=== PATIENT | female | born 1960 | race Caucasian/White ===

== ENCOUNTER 2021-11-20 08:09 | Emergency (ER) | payer OTHER ==
[~2021-11-20] VITALS: Ht 165.1 cm; Wt 79.4 kg
[2021-11-20 08:46] LABS: BASOPHILS 0.4 % (0.0-2.0); EOSINOPHILS 1.4 % (0.0-3.0); HEMATOCRIT 47.9 % (37.0-47.0); HEMOGLOBIN 15.9 gm/dL (12.0-15.0); LYMPHOCYTES 15.1 % (24.0-44.0); MCH 30.5 pg (26.0-34.0); MCHC 33.1 g/dL (28.0-37.0); MCV 92.2 fL (80.0-100.0); MONOCYTES 4.4 % (1.0-8.0); PLATELET COUNT 378 thou/uL (150-400); POLYS 78.7 % (36.0-66.0); RDW 13.3 % (10.5-14.5); WBC 12.7 thou/uL (4.0-11.0)
[2021-11-20 08:56] LABS: CALCIUM 10.2 mg/dL (8.5-10.1); CREATININE 0.8 mg/dL (0.6-1.0); POTASSIUM 3.9 mmol/L (3.5-5.1)
[2021-11-20 09:01] LABS: ALBUMIN 4.3 g/dL (3.4-5.0); TOTAL BILIRUBIN 0.7 mg/dL (0.2-1.0); TOTAL PROTEIN 7.7 g/dL (6.4-8.2)
[2021-11-20] MEDS ORDERED: NAPROSYN500 MG PO (10:36)
[2021-11-20] MEDS ORDERED: ZOFRAN ODT4 MG PO (10:36)
[2021-11-20] MEDS ORDERED: NORCO5 PO (10:36)
[2021-11-20 10:37] VITALS: BP 111/51
== END 2021-11-20 10:48 | disposition home or self-care (01) ==
LOC: ER 08:09
PROVIDERS: Emergency Medicine
DX: N20.0 Calculus of kidney (principal); Z98.51 Tubal ligation status